=== PATIENT | female | born 1975 | race Caucasian/White ===

== ENCOUNTER → 2021-07-09 | Outpatient (CLI) | payer OTHER ==
[2021-07-09 13:17] LABS: HEMOGLOBIN 12.5 gm/dl (12.3-15.3); RED BLOOD COUNT 4.23 M/UL (4.00-5.10); WHITE BLOOD COUNT 7.4 K/UL (4.5-11.0)
[2021-07-09 13:49] LABS: BUN/CREATININE RATIO 19 (0-10)
[2021-07-10 07:11] LABS: COMPLEMENT C3, SERUM 129 mg/dL (82-167); COMPLEMENT C4, SERUM 30 mg/dL (12-38)
[2021-07-10 08:14] LABS: HBSAG SCREEN Negative (Negative); HCV AB <0.1 (0.0-0.9); HEP B CORE AB, TOT Negative (Negative)
== END ==
LOC: LAB 12:21
PROVIDERS: Internal Medicine
DX: Z51.81 Encounter for therapeutic drug level monitoring (principal); R53.83 Other fatigue; M25.50 Pain in unspecified joint; Z79.899 Other long term (current) drug therapy
CPT/HCPCS: 36415; 80053; 85025; 86160; 86704; 86803; 87340

== ENCOUNTER → 2021-09-06 | Outpatient (CLI) | payer OTHER | LOC: HEART CORB 08-27 13:00 | DX: R07.2 Precordial pain (principal) ==

== ENCOUNTER → 2021-10-01 | Outpatient (CLI) | payer OTHER | LOC: HEART CORB 09-27 14:30 | DX: I10 Essential (primary) hypertension (principal); I47.1 Supraventricular tachycardia; R00.2 Palpitations | CPT/HCPCS: 93306 ==